=== PATIENT | male | born 1955 | race Caucasian/White ===

== ENCOUNTER 2018-09-10 06:16 | Day surgery (SDC) | payer BC, OTHER ==
[~2018-09-10] VITALS: Ht 188 cm; Wt 83.9 kg
[~2018-09-10 06:16] MED LIST: ALFU10TA2 PO; ASPI81TA85 PO; FINA5TAB2 PO; TEST1GEL10 TD; clomid PO
[2018-09-10] MEDS ORDERED: LR 1,000 ML IV ONE (07:00)
[2018-09-10] MEDS ORDERED: PROPOFOL 200 MG/20 ML VIAL As Ordered ONE (07:41)
[2018-09-10] MEDS ORDERED: fentaNYL 250 MCG/5 ML INJECTION (J3010) As Ordered ONE (07:41)
[2018-09-10] MEDS ORDERED: LIDOCAINE 2% INJ 100 MG/5 ML SDV (FOR ANES.) As Ordered ONE (07:41)
[2018-09-10] MEDS ORDERED: dexameTHASONE 4 MG/ML 1ML VIAL (J1100) As Ordered ONE (07:41)
[2018-09-10] MEDS ORDERED: MIDAZOLAM INJ 2 MG/2 ML VIAL (J2250) As Ordered ONE (07:41)
[2018-09-10] MEDS ORDERED: PHENYLephrine HCL 500 MCG/5 ML (100MCG/ML) SYRINGE (J2370) As Ordered ONE (08:10)
[2018-09-10] MEDS ORDERED: ONDANSETRON 4MG/2ML VIAL (J2405) As Ordered ONE ×2 (08:44→09:51)
[2018-09-10] MEDS ORDERED: KETOROLAC 60 MG/2 ML VIAL (J1885) As Ordered ONE (08:44)
[2018-09-10] MEDS ORDERED: BUPIVACAINE HCL 0.5% 10 ML VIAL XX ONE (09:16)
[2018-09-10] MEDS ORDERED: PERCOCET 5MG/325MG TAB As Ordered ONE (09:52)
[2018-09-10 10:20] VITALS: BP 132/78
[2018-09-10] MEDS ORDERED: LR 1,000 ML IV SCH ×2 (10:30→11:15)
[2018-09-10] MEDS ORDERED: METOCLOPRAMIDE INJ 10MG/2ML VIAL (J2765) IV PRN (10:30)
[2018-09-10] MEDS ORDERED: ONDANSETRON 4MG/2ML VIAL (J2405) IV PRN (10:30)
[2018-09-10] MEDS ORDERED: fentaNYL 100 MCG/2 ML INJECTION (J3010) IV PRN (10:30)
[2018-09-10] MEDS ORDERED: PERCOCET 5MG/325MG TAB PO PRN (10:30)
[2018-09-10] MEDS ORDERED: MEPERIDINE INJ 25 MG/ML VIAL (J2175) IV PRN (10:30)
[2018-09-10] MEDS ORDERED: traMADol 50 MG TAB PO SCH (14:00)
--- NOTE | 2018-09-10 18:03 | REP ---
C-ARM VIEWS RIGHT FIRST TOE: Multiple C-Arm views of the right first toe are performed. There is placement of a metallic staple along the first proximal phalanx. 23.6 seconds fluoroscopy time utilized. Electronically Signed by Hansel Corrales MD 09/11/2018 10:43 A
--- NOTE | 2018-09-14 08:21 | RO ---
DATE OF PROCEDURE: 09/10/2018 PREOPERATIVE DIAGNOSIS: Right hallux rigidus. POSTOPERATIVE DIAGNOSIS: Right hallux rigidus. PROCEDURE: Right 1st metatarsal head Cartiva implant and proximal phalanx Balbir osteotomy. SURGEON: Lindy Field MD SUPERVISOR DAIRY SANITATION: YAA Cuevas ANESTHESIA: Laryngeal mask airway (LMA). ESTIMATED BLOOD LOSS: Less than 10 mL. COMPLICATIONS: None. CONDITION: Stable to recovery. INDICATIONS: Christo Mckeon is a 62-year-old male who has had longstanding pain to his great toe due to hallux rigidus. He has failed conservative measures. He wishes to proceed with surgery. Risks and benefits of surgery were discussed with the patient in detail and include, but are not limited to, infection, damage to nerves or blood vessels, need for additional procedures, continued pain and stiffness, fracture, blood clot. Patient wished to proceed with surgery, and informed consent was obtained in the office. DESCRIPTION OF PROCEDURE: Patient was met in the preoperative holding area where his right toe was marked as the corrective operative site. He was then taken to the operating room and placed in the supine position on the operating room table. Bony prominences were all padded. He underwent LMA anesthesia without difficulty. A bump was placed under the right hip. A well-padded tourniquet was applied to the right upper thigh. Antibiotics were given within 15 minutes prior to incision. Appropriate radiographs were displayed in the room. Right lower extremity was prepped and draped in the normal sterile fashion. Official time-out was held, which confirmed the correct patient, procedure, and operative side. An incision was made directly over the proximal phalanx and 1st MTP joint. Careful dissection to the level of the extensor hallucis longus (EHL) tendon was performed. The EHL was retracted laterally. The capsule was incised. The 1st metatarsal head was exposed. There was found to be substantial arthritis throughout the 1st metatarsal head. There was some remaining normal cartilage over the medial aspect of the joint. A decision was made to use the Cartiva implant. The pin was placed centrally in the metatarsal head. This did cover a fair amount of the areas of cartilage loss. Following this, an 8 mm reamer was used. After reaming was performed, irrigation was performed of the metatarsal head. The 8 mm implant was placed. At this point, there was smooth gliding of the joint surface with dorsiflexion and plantar flexion. Patient was approximately to 60-70 degrees with dorsiflexion. A decision was made to perform a Balbir osteotomy. Proximal phalanx was isolated, and a 38 saw was used to remove a dorsal wedge of bone. A 9 x 7 Speed staple was used to secure the osteotomy. Patient had 70-75 degrees of dorsiflexion following this procedure. Joint was copiously irrigated. Capsule was closed with #2-0 Vicryl. Subcutaneous tissues were closed with #3-0 Vicryl. Skin was closed with a running #3-0 nylon. Patient was placed into a well-padded dressing after Marcaine was injected. He was placed into a postoperative shoe. PLAN: Patient will be heel weightbearing on the right lower extremity. He can work on range of motion of his toe. He will be seen in 2 weeks for wound check and suture removal.
== END 2018-09-10 11:07 | disposition home or self-care (01) ==
LOC: M SDC 06:16
PROVIDERS: ATTEND Orthopaedic Surgery
DX: M20.21 Hallux rigidus, right foot (principal); N40.0 Benign prostatic hyperplasia without lower urinary tract symptoms; M54.5 Low back pain; G62.9 Polyneuropathy, unspecified; Z79.82 Long term (current) use of aspirin; Z79.899 Other long term (current) drug therapy
CPT/HCPCS: 28291; 76000; 97116; C1713; J0690; J1100; J1885; J2250; J2370; J2405; J3010; L8641

== ENCOUNTER 2019-07-14 10:48 | Day surgery (SDC) | payer BC, OTHER ==
[~2019-07-14] VITALS: Ht 188 cm; Wt 81.1 kg
[~2019-07-14 10:48] MED LIST changes: -ALFU10TA2 PO; +ALFU10TA3 PO; +CYCL10TA PO; +MULTCAP PO; +RA T500C2 PO; -TEST1GEL10 TD; +TEST1GEL10 TOP; +ceFAZolin SOD 2 GM in IV 1 EA IV ONE
[2019-07-14] MEDS ORDERED: EPINEPHrine INJ 1 MG/ML 1ML VIAL ONE (10:49)
[2019-07-14] MEDS ORDERED: LIDOCAINE 1% MDV 20ML VIAL ONE (10:49)
[2019-07-14] MEDS ORDERED: ROPIvacaine 0.5% 30 ML INJECTION (J2795 PER 1MG) ONE (10:49)
[2019-07-14] MEDS ORDERED: PROPOFOL 200 MG/20 ML VIAL As Ordered ONE (12:45)
[2019-07-14] MEDS ORDERED: ONDANSETRON 4MG/2ML VIAL (J2405) As Ordered ONE ×2 (12:45→17:15)
[2019-07-14] MEDS ORDERED: LIDOCAINE 2% INJ 100 MG/5 ML SDV (FOR ANES.) As Ordered ONE (12:45)
[2019-07-14] MEDS ORDERED: MIDAZOLAM INJ 2 MG/2 ML VIAL (J2250) As Ordered ONE ×2 (12:46→13:21)
[2019-07-14] MEDS ORDERED: fentaNYL 100 MCG/2 ML INJECTION (J3010) As Ordered ONE ×3 (12:46→15:19)
[2019-07-14] MEDS ORDERED: BUPIVACAINE HCL 0.5% 30 ML VIAL As Ordered ONE (13:37)
[2019-07-14] MEDS ORDERED: ROCURONIUM BROMIDE 50 MG/5 ML VIAL As Ordered ONE (13:47)
[2019-07-14] MEDS: fentaNYL 100 MCG/2 ML INJECTION (J3010) IV SCH ×2 (13:50→13:55)
[2019-07-14] MEDS: MIDAZOLAM INJ 2 MG/2 ML VIAL (J2250) IV SCH ×2 (13:50→13:55)
[2019-07-14] MEDS ORDERED: dexameTHASONE 4 MG/ML 1ML VIAL (J1100) As Ordered ONE (14:35)
[2019-07-14] MEDS ORDERED: ACETAMINOPHEN 1000MG 100ML IV BTL (OFIRMEV) (J0131 PER 10MG) As Ordered ONE (14:37)
[2019-07-14] MEDS ORDERED: KETOROLAC 60 MG/2 ML VIAL (J1885) As Ordered ONE (14:51)
[2019-07-14] MEDS ORDERED: SUGAMMADEX SODIUM 500 MG/5 ML VIAL (BRIDION) As Ordered ONE (15:29)
--- NOTE | 2019-07-14 17:17 | ECGEPIP ---
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
[2019-07-14] MEDS ORDERED: PERCOCET 5MG/325MG TAB PO PRN (17:30)
[2019-07-14] MEDS ORDERED: METOCLOPRAMIDE INJ 10MG/2ML VIAL (J2765) IV PRN (17:30)
[2019-07-14] MEDS ORDERED: fentaNYL 100 MCG/2 ML INJECTION (J3010) IV PRN (17:30)
[2019-07-14] MEDS ORDERED: ONDANSETRON 4MG/2ML VIAL (J2405) IV PRN (17:30)
[2019-07-14] MEDS ORDERED: HYDROMORPHONE HCL 0.5 MG/ 0.5 ML SYRINGE (J1170 PER 1) IV PRN (17:30)
[2019-07-14] MEDS ORDERED: LR 1,000 ML IV SCH ×2 (17:30)
[2019-07-14] MEDS ORDERED: PROMETHAZINE INJ 25 MG/ML VIAL (J2550) As Ordered ONE (19:59)
[2019-07-14] MEDS ORDERED: PROMETHAZINE INJ 25 MG/ML VIAL (J2550) IV ONE (20:15)
[2019-07-14] MEDS ORDERED: PROMETHAZINE INJ 25 MG/ML VIAL (J2550) IV PRN (20:30)
[2019-07-14 22:10] VITALS: BP 101/59
--- NOTE | 2019-07-15 07:22 | REP ---
REASON FOR EXAM: Status post fusion. Two spot views, AP and lateral of the first digit of the right foot were obtained in [place] using a portable C-arm device. There is an internal fixation plate affixed by six affixing screws fusing the first metatarsophalangeal joint. Fluoroscopy time provided to Dr. Lindy Field, 33 seconds. Electronically Signed by Jameson Shook DO 07/15/2019 11:15 A
--- NOTE | 2019-07-15 18:42 | RO ---
DATE OF PROCEDURE: 07/14/2019 PREPROCEDURE DIAGNOSES: 1. Right hallux rigidus. 2. Failed right Cartiva implant. POSTPROCEDURE DIAGNOSES: 1. Right hallux rigidus. 2. Failed right Cartiva implant. PROCEDURE: 1. Right first metatarsal removal of Cartiva implant. 2. Right proximal phalanx removal of staple. 3. Right fist metatarsophalangeal (MTP) arthrodesis. 4. Right calcaneal bone graft. 5. Use of the mini C-arm. SURGEON: Lindy Field MD STAVE HEWER: YAA Chavez ANESTHESIA: LMA and popliteal nerve block. ESTIMATED BLOOD LOSS: 25 mL. SPECIMENS: Anaerobic and aerobic cultures times two plus culture and gram stain from inflammatory tissue removed from Cartiva implant site. COMPLICATIONS: None. CONDITION: Stable to recovery. INDICATIONS: Christo Mckeon is a 63-year-old male who has had increased pain, swelling, and who had difficulty with weightbearing over the past few months. He has failed conservative measures. The risks and benefits of surgery were discussed with the patient in detail and include but are not limited to infection, damage to nerves and blood vessels, continued pain and stiffness, need for additional procedures. Informed consent was obtained. DESCRIPTION OF PROCEDURE: Patient was met in the preoperative holding area where his right lower extremity was marked as the correct operative site. He was taken to the post-anesthesia care unit (PACU) and underwent a nerve block. He was then taken to the operating room and placed in the supine position on the operating room table. Bony prominences were well padded. Antibiotics were given within 60 minutes prior to incision. A well-padded tourniquet was placed on the right upper thigh. A chlorhexidine scrub was performed of the right lower extremity as well. It was then prepped and draped in the normal sterile fashion. An official time-out was held where the correct patient, operative site and operative procedure were verified. Following this, using the patient's prior scar, an incision was made directly over the first MTP joint. Extensor hallucis longus (EHL) tendon was identified and retracted laterally. There was significant inflammatory tissue and scar in the region of the first MTP joint. This was debrided. I was able to access the joint and the Cartiva implant did appear to be loose and was easily removed. Using a curette, I thoroughly debrided the Cartiva implant site and the surrounding cartilage in both the proximal phalanx and the first metatarsal. Then copious irrigation was performed. I did send cultures and inflammatory tissue from the Cartiva site as well. There were two aerobic and anaerobic cultures in addition to the tissue. Following this, using the 0.062 K-wire, multiple holes were drilled to perforate the subchondral bone. I then used an Arthrex bone dowel allograft, which I cut down with a saw, to fill the Cartiva site. This was a 10 mm graft. I somewhat trimmed the edges so that it would fit in the prior 8 mm implant defect. This fit nicely. Next, I chose appropriate Arthrex first MTP plate. This was placed in appropriate position and secured distally with locking and nonlocking screws. Then, I gained compression through the plate using the oblong hole. This gave adequate compression and plate was further secured distally using the appropriate locking and nonlocking screws. X-rays were performed using the mini C-arm, AP, lateral and oblique view which showed satisfactory alignment and compression of the first MTP joint. There was some mild defect dorsally, and this was packed with both autograft and allograft using crushed cancellous chips, DBM and a calcaneal bone graft. Calcaneal bone met graft had been previously removed prior to plate insertion. This was done through a small incision in the lateral aspect of the heel. Careful dissection was performed to avoid the sural nerve and peroneal tendons. Using a 4.0 drill sleeve, I removed about 5 mL of calcaneal bone graft. Some of this was placed in the joint before the plate was put on, and, again, also over the dorsal aspect of the joint where there was a small defect. After the bone grafting was done, #2-0 Vicryl was used to close the capsule. #3-0 Vicryl was then used to close the subcutaneous tissues, followed by a running #3-0 nylon. The calcaneal bone graft site was also closed using #3-0 Vicryl and #3-0 nylon. A sterile dressing was applied, and the patient was placed into a well-padded splint. He was extubated and transferred to the recovery room in stable condition.
== END 2019-07-14 22:25 | disposition home or self-care (01) ==
LOC: M SDC 10:48
PROVIDERS: ATTEND Orthopaedic Surgery
DX: M20.21 Hallux rigidus, right foot (principal); T84.098A Other mechanical complication of other internal joint prosthesis, initial encounter; Z88.5 Allergy status to narcotic agent; Z79.899 Other long term (current) drug therapy; N40.0 Benign prostatic hyperplasia without lower urinary tract symptoms; Y79.2 Prosthetic and other implants, materials and accessory orthopedic devices associated with adverse incidents; Y83.1 Surgical operation with implant of artificial internal device as the cause of abnormal reaction of the patient, or of later complication, without mention of misadventure at the time of the procedure; Z96.698 Presence of other orthopedic joint implants
CPT/HCPCS: 20680; 20900; 28289; 64445; 73610; 87070; 87075; 87205; 93005; C1713; C1762; J0131; J0690; J1100; J1885; J2250; J2405; J2765; J2795; J3010

== ENCOUNTER → 2019-07-31 | Outpatient (CLI) | payer BC, OTHER, MEDICARE ==
[~2019-07-31] MED LIST changes: -ceFAZolin SOD 2 GM in IV 1 EA IV ONE
== END ==
LOC: M RAD 11:58
PROVIDERS: ATTEND Physician Assistant Medical
DX: Z53.9 Procedure and treatment not carried out, unspecified reason (principal); M79.661 Pain in right lower leg